=== PATIENT | female | born 1940 | race Two or more races ===

== ENCOUNTER 2025-04-18 11:53 | Inpatient (IN) | payer BC, SELFPAY ==
[2025-04-17] VITALS (11 sets, daily range): BP systolic 124–157; BP diastolic 55–136; BMI 27.1
--- NOTE | 2025-04-17 10:44 | ED.GENMED ---
History of Present Illness
General
Chief Complaint: Swelling
Source: patient
Exam Limitations: none
Time Seen by Provider: 04/17/25 10:30
History of Present Illness
History of Present Illness:
85-year-old female complaining of bilateral lower extremity swelling. Started in the last 24 to 36 hours. Chronologically she feels it was related to her taking an injection of Zepbound. She denies chest pain shortness of breath. Some nasal
congestion. No fever or chills. No abdominal pain. No history of similar episodes.
Past History
Past History
ED Past Medical History: HTN and Hypercholesterolemia
Review of Systems
Review of Systems
All Other Systems: Not applicable
Constitutional: Denies fever
Respiratory: Reports no symptoms
Cardiac: Reports no symptoms
Phy Exam
Physical Exam
Physical Exam:
GENERAL: Alert and oriented in no apparent distress
EYE: Orbits normal.
NECK: Supple, no significant adenopathy.
ENT: Pharynx without erythema
CARDIAC: Regular rate and rhythm without any obvious murmurs.
LUNGS: Clear breath sounds,normal
ABDOMEN: Soft, without focal tenderness or distention
NEUROLOGICAL: Alert and oriented , grossly non-focal
SKIN: Warm and dry, no rash or lesion, no discoloration, skin intact.
MUSCULOSKELETAL: Mild bilateral lower extremity pitting edema symmetrically
PSYCH: Normal and appropriate interaction.
Scores
Heart Failure Risk
Heart Failure Risk Score: Not Applicable
Course
Orders/Labs/Results
Orders:
Orders
04/17/25 10:43
Electrocardiogram (*1) Stat
Reason for Study: Other
Other Reason for Exam: chest pain
EKG- Treatment ONCE
IV Insert/Care/Rem.- Treatment PRN
CR Chest - 2 Views Urgent
Comment:
Reason For Exam: Bilateral leg swelling
Pulse Ox/cont/shift [RESP] Stat
Quantity: 1
US Periph Venous LOWER Ext Jose De Jesus Urgent
Comment:
Reason For Exam: Bilateral leg swelling
04/17/25 11:01
Basic Metabolic Panel Urgent
Complete Blood Count/With Diff Urgent
Magnesium Urgent
Comment: ADD ON
NT-proBNP Urgent
TSH Reflex To Free T4 Urgent
Troponin I Urgent
04/17/25 12:08
Potassium Chloride 10% Elixir [KCl Elixir] 40 meq PO NOW STA
Potassium Chloride [KCl] 40 meq 0.9% Sodium Chloride 250 ml [Nss] 250 ml IV NOW
04/17/25 12:28
Potassium Chloride [KCl] 40 meq 0.9% Sodium Chloride 250 ml [Nss] 250 ml IV NOW
04/17/25 12:43
Add On- LAB Urgent
Tests Added?: Magnesium
04/17/25 12:45
Admit/Transfer Patient As Directed
Co-Sign Provider:
Level of Care: Observation services
Assign to:: Telemetry
Physician / Group: [email or web address]
Diagnosis: acute hypokalemia, peripherla edema
Reason for Telemetry: Other
Other Reason for Telemetry: acute hypokalemia, peripherla edema
Date to Stop Telemetry: 04/19/25
Time to Stop Telemetry: 11:00
04/17/25 12:49
Code Status As Directed
Resuscitation Status: Full Code
04/17/25 13:35
CMP [Comprehensive Metabolic Panel] Urgent
04/18/25 06:00
CMP [Comprehensive Metabolic Panel] IN AM
Magnesium IN AM
04/19/25 11:00
DC Protocol for Telemetry ONCE
Abnormal Lab Results
04/17/25
11:01
RBC 3.16 L 10^6/uL
(4.20-5.40)
Hgb 9.5 L g/dL
(12.0-16.0)
Hct 28.6 L %
(37.0-47.0)
Absolute Monos (auto) 0.7 H 10^3/uL
(0.1-0.6)
Monocytes % 10.5 H %
(1.7-9.3)
Potassium 2.5 L* mmol/L
(3.5-5.1)
Carbon Dioxide 35 H mmol/L
(22-30)
04/17/25 11:01
04/17/25 11:01
Vital Signs
Initial and Last Documented VS:
Initial Vital Signs
Temp Pulse Resp BP Pulse Ox
98.5 F 61 16 150/59 96
04/17/25 09:48 04/17/25 09:48 04/17/25 09:48 04/17/25 09:48 04/17/25 09:48
Last Documented Vital Signs
Temp Pulse Resp BP Pulse Ox
98.5 F 53 16 157/70 95
04/17/25 09:48 04/17/25 12:45 04/17/25 12:45 04/17/25 12:36 04/17/25 12:45
MDM/Problems Addressed
Differential Diagnosis Includes:
Bilateral lower extremity mild pitting edema. Relatively new onset. Highly doubt DVT but will get ultrasound. Evaluate for renal failure or heart failure. All very low suspicion. Patient is on a calcium channel jared it could be related to
this although she has been on that for a while. Workup in progress. Also check thyroid.
Severe hypokalemia. Possible mild fluid overload although minimal. Patient was on a hydrochlorothiazide diuretic. Will admit for replenishment
*Radiology
Radiology exam reviewed: preliminary read by ED provider (Negative) and other (Negative ultrasound)
*Pulse Oximetry
SaO2: 96
Oxygen Mode of Delivery: Room air
Patient hypoxic: no
*EKG
Interpreted by ED Provider?: Yes
Interpretation: abnormal
Comparison EKG: no comparison EKG present
Heart Rate: 54
Rate: bradycardiac
Rhythm: sinus
[place]: normal axis
Interval: normal interval
QRS Pattern: normal QRS
Ischemia: no ischemia
*Critical Care Note
Total Time (30-74mins, 75-104mins- exclusive of procedures): Not Applicable
ED Attending Note
-
Portions of this chart may have been created with voice recognition software.� Occasional wrong word or��sound alike� substitutions may have occurred due to the inherent limitations of voice recognition software.
Discharge Plan
Departure
Patient Disposition: Admit
Date of Disposition: 04/17/25
Time of Disposition: 12:22
Presentation/result/management discussed w/ accepting MD/DO: Hospitalist
Discharge Problem:
Severe hypokalemia, Anemia, Peripheral edema
Interventions
Interventions:
*Risk Screen - Suicide Last Done: 04/17/25 09:48
*General Assessment Last Done: 04/17/25 11:08
*Neglect/Abuse Screening Last Done: 04/17/25 09:48
*ED COVID-19 Vaccine History Last Done: 04/17/25 11:08
*ED Influenza Vaccine History Last Done: 04/17/25 11:08
ED- Cardiac Assessment Last Done: 04/17/25 11:08
ED- Pulmonary Assessment Last Done: 04/17/25 11:08
ED-Skin Assessment Last Done: 04/17/25 11:08
[2025-04-17 11:22] LABS: Hematocrit 28.6 % (37.0-47.0); Hemoglobin 9.5 g/dL (12.0-16.0); Mean Corp Hgb Conc. 33.2 g/dL (33.0-37.0); Mean Corpuscular Volume 90.5 fL (81.0-99.0); Nucleated Red Blood Cells % 0 %; Platelet Count 214 10^3/uL (130-400); Red Cell Dist. Width 14.1 % (11.5-14.5)
[2025-04-17 11:37] LABS: Blood Urea Nitrogen 13 mg/dl (7-17); Calcium 8.8 mg/dl (8.4-10.2); Carbon Dioxide 35 mmol/L (22-30); Chloride 100 mmol/L (98-107); Glucose 81 mg/dl (70-99); Potassium 2.5 mmol/L (3.5-5.1); Sodium 140 mmol/L (135-145); eGFR > 60.00
[2025-04-17 11:43] LABS: Troponin I 0.014 ng/ml
--- NOTE | 2025-04-17 12:22 | HPS.HSE ---
Addendum entered and electronically signed by Nasim Chapman MD 04/17/25 14:46:
ADDENDUM
B/L TYRELL US report
- Negative for bilateral lower extremity deep venous thrombosis.
CXR
- Tiny bilateral pleural effusions.
- Small right upper lobe pulmonary nodule. Probable benign granuloma.
- Nonurgent chest CT examination recommended.
Hospitalist informed the patient and family to f/u with OP CTC as suggested by CXR report
Original Note:
Family Physician
-
Family Physician: * NONE
Chief Complaint
-
New onset of Tyrell edema
History of Present Illness
HPI
85F HX HTN, HLD seen at ER
- onset of bilateral lower extremity swellingnoted in last 24 to 36 hours.
- Chronologically she feels it was related to her taking an injection of Zepbound( Tirzepatide- GLP1 +GIPreceptor)for wt loss and BG control
ROS:
She denies chest pain shortness of breath.
Some nasal congestion. No fever or chills.
No abdominal pain.
No history of similar episodes.
Medical History
Past Medical History
Past Medical History: Reports HTN and Hypercholesterolemia
Past Surgical History: Reports None
Social History
Tobacco: Non-smoker
Alcohol: None
Family History
Family History: Not pertinent
Allergies / Home Medications
Allergies reflects when Allergies were last updated in [facility].
Home Medications with original date entered in [facility]
Allergy/Medication List:
Allergies
Allergy/AdvReac Type Severity Reaction Status Date / Time
Penicillins Allergy Mild Rash Verified 04/17/25 09:48
Sulfa (Sulfonamide Allergy Mild Rash Verified 04/17/25 09:48
Antibiotics)
Home Medications
Lactobac no.2-Bifidobac no.1-S. thermo 112.5 billion cell capsule (Visbiome) 1 cap PO DAILY Supplement 04/17/25
amlodipine 5 mg tablet (Norvasc) 5 mg PO DAILY Gastrointestinal Issue 04/17/25
buspirone 5 mg tablet 5 mg PO DAILY Mental Health/Anxiety 04/17/25
cholecalciferol (vitamin D3) 25 mcg (1,000 unit) tablet (Vitamin D3) 25 mcg PO DAILY Supplement 04/17/25
coQ10 (ubiquinol) 100 mg capsule 100 mg PO DAILY Supplement 04/17/25
hydrochlorothiazide 12.5 mg tablet 12.5 mg PO DAILY Blood Clot Prevention/Tx 04/17/25
losartan 100 mg tablet 100 mg PO DAILY Blood Pressure 04/17/25
rosuvastatin 5 mg tablet (Crestor) 5 mg PO DAILY 04/17/25
Review of Systems
-
Constitutional: Reports No Symptoms
EENT: Reports No Symptoms
Respiratory: Reports No Symptoms
Cardiac: Reports No Symptoms
Abdomen/GI: Reports No Symptoms
: Reports No Symptoms
Musculoskeletal: Reports See HPI and Edema (Tyrell )
Skin: Reports No Symptoms
Neurological: Reports No Symptoms
Endocrine: Reports No Symptoms
Hematologic/Lymphatic: Reports No Symptoms
Psych: Reports No Symptoms
Physical Exam
Vital Signs
Vital Signs
Temp Pulse Resp BP Pulse Ox
98.5 F 51 18 139/66 95
04/17/25 09:48 04/17/25 11:07 04/17/25 11:07 04/17/25 11:07 04/17/25 11:07
Physical Exam
General: Well Developed, Well Nourished and No Apparent Distress
HEENT: NormoCephalic, Moist mucous membranes and Atraumatic
Respiratory: Clear
Cardiac: S1/S2 and Regular Rhythm; No Murmur or Rub
GI: Soft, Non Tender, Non Distended and Normal Bowel Sounds; No Organomegaly
Rectal: Deferred by Provider
Musculoskeletal: Edema, Left Lower Extremity (pitting, not tender , no erythema ) and Edema, Right Lower Extremity (pitting, not tender , no erythema )
Skin: No Rash
Neuro: Nonfocal/grossly intact
Laboratory Results
-
04/17/25 11:01
04/17/25 11:01
Laboratory Results
Troponin I 0.014 ng/ml 04/17/25 11:01
Data Reviewed
-
Diagnostic Radiology: Other (pending report )
Ultrasound: Other (pending report )
Lab Data: Labs Reviewed by me
Impression/Plan
-
Vital Signs
Temp Pulse Resp BP Pulse Ox
98.5 F 51 18 139/66 95
04/17/25 09:48 04/17/25 11:07 04/17/25 11:07 04/17/25 11:07 04/17/25 11:07
Laboratory Tests
04/17/25
11:01
WBC 6.3
Hgb 9.5 L
MCV 90.5
Plt Count 214
Sodium 140
Potassium 2.5 L*
Carbon Dioxide 35 H
Creatinine 0.6
eGFR > 60.00
Troponin I 0.014
Qak-B-Rkidpozcntg Pept 1770
TSH (Reflex) 0.95
Pending CXR final report
Pending TYRELL US report
EKG:
P-R Int : 158 ms QRS Dur : 82 ms QT Int : 464 ms P-R-T Axes : 30 -6 16 degrees
QTcB Int : 440 ms
SINUS BRADYCARDIA
OTHERWISE NORMAL ECG
NO PREVIOUS ECGS AVAILABLE
NO PRIOR hospitalist admission:
ASSESSMENT & PLAN
Severe hypokalemia suspect due to HCTZ
- report PO intake
- No EKG changes
- Mg stat
- S/P IV KCL 40 + PO KCL 40
- Repeat K at 6 pm and FU BMP at am
New onset of B/L Tyrell edema
- check LFTs and Albumin ( ordered CMP )
- Hold Amlodipine for now
- FU Tyrell US report and CXR report
- ECHO in AM for LVEF and RV function
- cont. compression stocking
Bn HTN - acceptable BP range
Normal renal function
- c/w Losartan
- Observe BP off Amlodipine and HCTZ
Dyslipidemia on Rosuvastatin
On inj Zepbound( Tirzepatide - GLP1 +GIP receptor)for wt loss and BG control
- she does not want to be cont.
DVT Px: LMWH
Full code
OBS TLM
[2025-04-17] MEDS: KCL ELIXIR 40 MEQ PO (12:33)
[2025-04-17] MEDS: KCL 270 MEQ IV (12:50)
[2025-04-17 13:23] LABS: Magnesium 2.0 mg/dl (1.6-2.3)
[2025-04-17 13:45] LABS: Urine Character Clear (Clear)
[2025-04-17 14:08] LABS: ALT (SGPT) 34 U/L (0-35); AST (SGOT) 29 U/L (14-36); Albumin 3.7 g/dl (3.5-5.0); Alkaline Phosphatase 51 U/L (38-126); Blood Urea Nitrogen 12 mg/dl (7-17); Calcium 8.9 mg/dl (8.4-10.2); Carbon Dioxide 35 mmol/L (22-30); Chloride 100 mmol/L (98-107); Glucose 92 mg/dl (70-99); Potassium 2.9 mmol/L (3.5-5.1); Sodium 137 mmol/L (135-145); Total Protein 6.1 g/dl (6.3-8.2); eGFR > 60.00
--- NOTE | 2025-04-17 15:25 | CM ---
Patient seen at bedside in ED. Patient sons present. Patient states that she lives in a 2 story home with a first floor bedroom. Patient has no DME at this time. Patient PCP is [facility] from [place], Patient nurse practicioner is [place].
Patient plan is to return to home with family support, patient uncertain if she will have any needs. CM provided OBS/MCNAMARA and form completed and given to community board member. CM will continue to follow for discharge planning needs.
Plan; home with VN pending medical treatment plan
[2025-04-17] MEDS: TYLENOL PO (16:30)
[2025-04-17] MEDS: LOVENOX 40 MG SC (17:28)
[2025-04-17 18:57] LABS: Blood Urea Nitrogen 12 mg/dl (7-17); Calcium 8.6 mg/dl (8.4-10.2); Carbon Dioxide 32 mmol/L (22-30); Chloride 103 mmol/L (98-107); Estimated Creatinine Clearance 56 ml/min; Glucose 89 mg/dl (70-99); Potassium 3.0 mmol/L (3.5-5.1); Sodium 136 mmol/L (135-145); eGFR > 60.00
[2025-04-17] MEDS: TYLENOL 650 MG PO (20:13)
[2025-04-18] MEDS: TYLENOL PO ×4 (01:41→17:21)
[2025-04-18 03:17] VITALS: BP 109/59
[2025-04-18 06:00] VITALS: BMI 26.9
[2025-04-18 07:15] VITALS: BMI 27.0
[2025-04-18 07:16] VITALS: BP 128/49
[2025-04-18] MEDS: CRESTOR 5 MG PO (07:46)
[2025-04-18] MEDS: COZAAR 100 MG PO (07:46)
[2025-04-18] MEDS: BUSPAR 5 MG PO (07:46)
[2025-04-18] MEDS: PROTONIX 20 MG PO (08:23)
[2025-04-18 08:26] LABS: ALT (SGPT) 40 U/L (0-35); AST (SGOT) 37 U/L (14-36); Albumin 3.5 g/dl (3.5-5.0); Alkaline Phosphatase 62 U/L (38-126); Blood Urea Nitrogen 15 mg/dl (7-17); Calcium 8.7 mg/dl (8.4-10.2); Carbon Dioxide 30 mmol/L (22-30); Chloride 101 mmol/L (98-107); Estimated Creatinine Clearance 56 ml/min; Glucose 71 mg/dl (70-99); Iron 52 ug/dl (37-170); LDH 246 U/L (120-246); Magnesium 2.0 mg/dl (1.6-2.3); Potassium 3.1 mmol/L (3.5-5.1); Sodium 137 mmol/L (135-145); Total Protein 5.9 g/dl (6.3-8.2); eGFR > 60.00
[2025-04-18 08:35] LABS: Total Iron Binding Capacity 318 ug/dl (265-497)
[2025-04-18 08:54] LABS: Reticulocyte Count 2.8 % (0.4-2.8)
[2025-04-18] MEDS: KCL 40 MEQ PO ×2 (09:09→12:19)
[2025-04-18 09:22] LABS: COVID-19 Antigen Negative (Negative)
--- NOTE | 2025-04-18 10:23 | W.PN.HOSP.TC ---
Addendum entered and electronically signed by Juan Molina MD 04/18/25 11:53:
#Small right upper lobe pulmonary nodule.
Probable benign granuloma. Low dose CT as outpatient with PCP
Original Note:
Today's Communication/Plan
-
see PN
Assessment / Plan
Assessment / Plan
85yo F with PMHx of anxiety, HTN, HLD came with 2 days of swelling of the ankles. She noticed 10lbs weight gain 2 weeks ago after she completed Prednisone taper prescribed by her PCP [employer] for TMJ pain. Found with b/l pitting ankle swelling that
subsided with compression stocking and severe hypokalemia
A/P:
#B/L LE edema
most likely subacute CHF since weight gain recently, elevated proBNP and JVD on exam. Patient not hypoxic
Improved on compression stockings, but would benefit from LAsix when hypokalmia resolved
Echo
Card consult
Kidney function WNL, no proteinuria on UA
#Hypokalemia
most likely 2/2 HCTZ
replete and follow
#HLD
#Essential HTN
hold Norvasc
cont statin
#anemia
most liekly DONELL - replete iron
anemia w/u
Outpatient EGD/Colonoscopy recommended
#Transaminitis
minimal
no abd pain
Hepatitis profile
DVT ppx lovenox
Full code
I have spent at least 51min reviewing chart, test results, communication with consultants and providing direct patient care
Anticipated Discharge: 24 - 48 hours
Subjective/Interval History
-
Date of Service: April 18, 2025
Objective Data
-
Labs:
Laboratory Results
04/18/25
06:57
Sodium 137
Potassium 3.1 L
Chloride 101
Carbon Dioxide 30
BUN 15
Creatinine 0.6
Glucose 71
Calcium 8.7
Total Bilirubin 1.3
AST 37 H
ALT 40 H
Alkaline Phosphatase 62
Vital Signs:
Vital Signs
Temp Pulse Resp BP Pulse Ox
98.4 F 62 17 128/49 97
04/18/25 07:16 04/18/25 07:16 04/18/25 07:16 04/18/25 07:16 04/18/25 07:16
I&O
04/17/25 04/18/25 04/19/25
06:59 06:59 06:59
Intake Total 180 / 180
Balance 180 / 180
Review of Systems
-
History Source: Patient
All other systems: Reviewed and negative
Physical Exam
-
General: No Apparent Distress
HEENT: Normocephalic
Cardiac: Regular Rhythm
GI: Soft, Nontender and Nondistended
Genito-urinary: No Costovertebral Tender
Musculoskeletal: No Clubbing, No Cyanosis, Edema, Right Lower Extrem and Edema, Left Lower Extrem
Skin: Warm
Neuro: Awake, Alert, Oriented and AO x 3
Psych: Calm
[2025-04-18 10:56] LABS: Folate 9.2 ng/ml (2.76-20); Vitamin B12 879 pg/ml (239-931)
--- NOTE | 2025-04-18 11:01 | CON.CAR ---
Addendum entered and electronically signed by Luis Funk MD 04/18/25 12:03:
I saw and evaluated the patient, and I provided the substantive portion of the medical decision making.
I reviewed and agree with the note by SERGIO Herndon and it accurately reflects our care.
I personally performed the medical decision making of the this encounter and my assessment and plan is below:
Volume overload developed after a 5-day course of prednisone. I am not sure we should call this heart failure yet. Appropriate to diurese to remove excess fluid. Will need to follow her over time. If fluid reaccumulates remote from steroids we might
have to consider HFpEF. Profound hypokalemia is being corrected. Presumably related to steroid exposure and thiazide diuretic. If hypokalemia recurs remote from prednisone may need to consider other etiologies and check Cain renin ratio. Echo
reveals moderate aortic regurgitation and mildly elevated PASP. Will need to follow these over time. EKG normal.
Original Note:
Consultation
Consultation Request
Date/Time Consultation Requested: 04/18/25 1012
Date/Time Consultation Performed: 04/18/25 1100
Requesting Provider: Dr. Molina
Performing Provider: Addie HILL for Dr. Funk
Reason for Consultation: CHF
Medical History
-
Chief Complaint: swelling
History of Present Illness:
85 y/o female with anxiety, hypertension, GERD, TMJ, and dyslipidemia who is here for evaluation of LE swelling that she noted on Friday. About 2 weeks ago she was on prednisone course for jaw pain related to her TMJ- helped with pain, but she
gained 11 lbs (normal weight for her is 123 lbs). We are consulted for concern for CHF. BNP is 1770. CXR showed small b/l pleural effusions. She denies any SOB. She was seen to have severe hypokalemia, which is being replaced. She is in no distress
at the time of my assessment.
Past Medical History
Past Medical History: GERD, HTN, Hypercholesterolemia and Psychiatric (anxiety)
Social History
Tobacco: Non-Smoker
Alcohol: Occasional
Personal:
Family History
Family History: CAD (dad [place] age 61)
Allergies / Home Medications
Allergy/AdvReac Type Severity Reaction Status Date / Time
Penicillins Allergy Mild Rash Verified 04/17/25 09:48
Sulfa (Sulfonamide Allergy Mild Rash Verified 04/17/25 09:48
Antibiotics)
�Medication �Instructions �Recorded �Confirmed �Type
Lactobac no.2-Bifidobac no.1-S. 1 cap PO DAILY Supplement 04/17/25 04/17/25 History
thermo 112.5 billion cell capsule
(Visbiome)
amlodipine 5 mg tablet (Norvasc) 5 mg PO DAILY Gastrointestinal 04/17/25 04/17/25 History
Issue
buspirone 5 mg tablet 5 mg PO DAILY Mental Health/Anxiety 04/17/25 04/17/25 History
cholecalciferol (vitamin D3) 25 25 mcg PO DAILY Supplement 04/17/25 04/17/25 History
mcg (1,000 unit) tablet (Vitamin
D3)
coQ10 (ubiquinol) 100 mg capsule 100 mg PO DAILY Supplement 04/17/25 04/17/25 History
hydrochlorothiazide 12.5 mg tablet 12.5 mg PO DAILY Blood Clot 04/17/25 04/17/25 History
Prevention/Tx
losartan 100 mg tablet 100 mg PO DAILY Blood Pressure 04/17/25 04/17/25 History
rosuvastatin 5 mg tablet (Crestor) 5 mg PO DAILY cholesterol 04/17/25 04/17/25 History
Review of Systems
-
History Source: Patient
All other systems: Negative unless noted
Constitutional: Weight Gain
Musculoskeletal: Edema
Physical Exam
Vital Signs
Temp Pulse Resp BP Pulse Ox
98.4 F 62 17 128/49 97
04/18/25 07:16 04/18/25 07:16 04/18/25 07:16 04/18/25 07:16 04/18/25 07:16
Lab Results
04/17/25 11:01
04/18/25 06:57
Troponin I 0.014 ng/ml 04/17/25 11:01
Vjn-A-Mbibhrzbojv Pept 1770 pg/ml 04/17/25 11:01
Physical Exam
General: Well Developed, Well Nourished and No Apparent Distress
HEENT: Normocephalic and Anicteric
Respiratory: Clear and Non Labored Respirations
Cardiac: Regular Rhythm
Musculoskeletal: Edema (mild BLE edema L > R)
Skin: Warm and Dry
Neuro: AO x 3
Psych: Calm
Impression / Plan
-
Volume retention likely related to recent steroid use:
-will order IV diuresis (with potassium hold parameters) after more potassium given and rechecked today. IV lasix requires intensive monitoring.
-dry weight is 123 lbs. She is currently 133 lbs. She has mild LE edema and lungs are clear. She is laying flat and denies SOB.
-We do not suspect heart failure at this time; volume retention likely related to above.
-echo is pending
Hypokalemia:
-severe on arrival
-replacement is underway
-monitor closely
-on HCTZ as OP
Anemia:
-w/u and management per hospitalists
HTN:
-stable
-monitor with diuresis/medicine adjustments
HLD:
-statin
Data Reviewed
-
EKG: Tracing Personally Visualized and interpreted (SB at 54 BPM)
Radiology: Report Reviewed by me (CXR: Tiny bilateral pleural effusions. Small right upper lobe pulmonary nodule. Probable benign granuloma. Nonurgent chest CT examination recommended.)
Ultrasound: Report Reviewed by me (Negative for bilateral lower extremity deep venous thrombosis.)
Medical Tests (Nuc Med, Echo etc): Other (echo ordered and pending)
Labs: Labs Reviewed by me
[2025-04-18 11:48] VITALS: BP 147/70
[2025-04-18 11:55] LABS: Ferritin 44.2 ng/ml (11.1-264.0)
[2025-04-18] MEDS: TYLENOL 650 MG PO ×3 (11:55→23:29)
--- NOTE | 2025-04-18 12:46 | CM ---
tt from [facility] patient LOC change-IMM explained & signed. In chart
cardiology consulted
discussed VN, declined at this time
PLAN: Home, when stable, CM to continue to follow for discharge planning/needs
[2025-04-18 15:10] VITALS: BP 138/70
[2025-04-18] MEDS: FERRLECIT 110 MG IV (15:12)
[2025-04-18 16:20] LABS: Potassium 4.0 mmol/L (3.5-5.1)
[2025-04-18] MEDS: LASIX 20 MG IV (16:29)
[2025-04-18] MEDS: KCL 20 MEQ PO (17:11)
[2025-04-18] MEDS: LOVENOX 40 MG SC (17:16)
[2025-04-18 18:37] LABS: Hepatitis B Surface Antigen Negative (Negative)
[2025-04-18 18:55] LABS: Hepatitis C Antibody Negative (Negative)
[2025-04-18 19:15] VITALS: BP 137/79
[2025-04-18 23:30] VITALS: BP 141/68
[2025-04-19 03:39] VITALS: BP 104/69
[2025-04-19] MEDS: TYLENOL PO ×4 (04:34→12:13)
[2025-04-19 06:11] VITALS: BMI 26.6
[2025-04-19 07:20] VITALS: BP 146/69
[2025-04-19] MEDS: PROTONIX 20 MG PO (07:27)
[2025-04-19] MEDS: CRESTOR 5 MG PO (07:27)
[2025-04-19] MEDS: COZAAR 100 MG PO (07:27)
[2025-04-19] MEDS: KCL 20 MEQ PO ×2 (07:27→14:08)
[2025-04-19] MEDS: BUSPAR 5 MG PO (07:27)
[2025-04-19] MEDS: LASIX IV ×2 (07:28→07:43)
[2025-04-19 07:38] LABS: Blood Urea Nitrogen 13 mg/dl (7-17); Calcium 8.5 mg/dl (8.4-10.2); Carbon Dioxide 32 mmol/L (22-30); Chloride 105 mmol/L (98-107); Estimated Creatinine Clearance 56 ml/min; Glucose 86 mg/dl (70-99); Potassium 3.0 mmol/L (3.5-5.1); Sodium 139 mmol/L (135-145); eGFR > 60.00
[2025-04-19 08:43] LABS: ALT (SGPT) 50 U/L (0-35); AST (SGOT) 42 U/L (14-36); Albumin 3.5 g/dl (3.5-5.0); Alkaline Phosphatase 55 U/L (38-126); Total Protein 5.8 g/dl (6.3-8.2)
[2025-04-19] MEDS: KCL 40 MEQ PO (08:56)
--- NOTE | 2025-04-19 09:06 | W.PN.CD ---
Today's Communication / Plan
-
1. Use Losartan 100 mg daily with new amlodipine 5 mg daily for her HTN
2. Do not resume HCTZ
3. Replete K+
4. I added ARR (aldosterone-renin ratio) to lab, will be pending at discharge
5. BMP in 1 and 3 weeks, results can go to my office
6. I stopped IV Lasix
7. Agree with workup of anemia, etiology uncertain, may need hematology eval as outpatient
From our perspective OK for home once K+ better
Impression / Plan
-
Volume retention likely related to recent steroid use:
-edema is resolved
-perhaps a dry weight is not 123 pounds. Today 59.6 kg (131 pounds
-dry weight is 123 lbs. She is currently 133 lbs. She has mild LE edema and lungs are clear. She is laying flat and denies SOB.
Moderate aortic regurgitation with AoV sclerosis
- Not likely related to anemia, hypokalemia, or edema
- Monitor over time
Hypokalemia:
-severe on arrival
-presumably from HCTZ and steroids and now some from Lasix
- I ordered an arya-renin ratio
Anemia:
-w/u and management per hospitalists
HTN:
-For now will use losartan and amlodipine w/o diuretic
HLD:
-statin
Subjective; feels well
Physical Exam
Vital Signs/Labs
Vital Signs
Temp Pulse Resp BP Pulse Ox
97.9 F 66 17 146/69 97
04/19/25 07:20 04/19/25 07:27 04/19/25 07:20 04/19/25 07:27 04/19/25 07:20
04/18/25 04/19/25 04/20/25
06:59 06:59 06:59
Actual Weight 60.328 kg 59.619 kg
04/17/25 11:01
04/19/25 06:53
Magnesium 2.0 mg/dl (1.6-2.3) 04/18/25 06:57
04/17/25
11:01
Wpb-N-Kizzkibxkiv Pept 1770
LAB Results
04/17/25
11:01
Troponin I 0.014
Physical Exam
Constitutional: No acute distress
EENT: Anicteric
Cardiovascular: Rhythm & rate is regular and Pedal edema is absent
Respiratory: Respiratory effort normal and Lungs clear to auscul.
GI: Soft and Distention absent
Neuro/Psych: Alert
Data Reviewed
-
Date of Service: April 19, 2025
[2025-04-19 10:56] VITALS: BP 121/77
--- NOTE | 2025-04-19 11:09 | W.PN.HOSP.TC ---
Today's Communication/Plan
-
dc
Assessment / Plan
Assessment / Plan
85yo F with PMHx of anxiety, HTN, HLD came with 2 days of swelling of the ankles. She noticed 10lbs weight gain 2 weeks ago after she completed Prednisone taper prescribed by her PCP [employer] [employer] for TMJ pain. Found with b/l pitting ankle swelling that
subsided with compression stocking and severe hypokalemia
A/P:
#B/L LE edema
most likely subacute CHF since weight gain recently, elevated proBNP and JVD on exam. Patient not hypoxic
Improved on compression stockings, but would benefit from LAsix when hypokalemia resolved
Echo: preserved EF, mild-moderate TR woith Estimated PASP 45 mmHg.
Card consult
Kidney function WNL, no proteinuria on UA
#Hypokalemia
most likely 2/2 HCTZ and poor oral intake
replete and follow
Renin/Aldosteone ratio - follow up with card as outpatient
#HLD
#Essential HTN
hold Norvasc
cont statin
#anemia
DONELL - replete iron IV while in hospital
Outpatient EGD/Colonoscopy recommended
Hematology if not improving
#Transaminitis
minimal
no abd pain
Hepatitis negative, immunized to HepB
DVT ppx lovenox
Full code
I have spent at least 36min reviewing chart, test results, communication with consultants and providing direct patient care
Anticipated Discharge: Today
Subjective/Interval History
-
Date of Service: April 19, 2025
Objective Data
-
Labs:
Laboratory Results
04/19/25
06:53
Sodium 139
Potassium 3.0 L
Chloride 105
Carbon Dioxide 32 H
BUN 13
Creatinine 0.6
Glucose 86
Calcium 8.5
Total Bilirubin 0.7
AST 42 H
ALT 50 H
Alkaline Phosphatase 55
Vital Signs:
Vital Signs
Temp Pulse Resp BP Pulse Ox
97.8 F 69 17 121/77 97
04/19/25 10:56 04/19/25 10:56 04/19/25 10:56 04/19/25 10:56 04/19/25 10:56
I&O
04/18/25 04/19/25 04/20/25
06:59 06:59 06:59
Intake Total 850 / 850
Output Total 1900 / 1900
Balance -1050 / -1050
Review of Systems
-
History Source: Patient
All other systems: Reviewed and negative
Physical Exam
-
General: No Apparent Distress
HEENT: Normocephalic
Cardiac: Regular Rhythm
GI: Soft, Nontender and Nondistended
Neuro: Awake, Alert, Oriented and AO x 3
Psych: Calm
--- NOTE | 2025-04-19 11:19 | W.DCSUMMARY ---
Discharge Summary
Discharge Data
Date of Admission: 04/18/25
Date of Discharge: 04/19/25
-
Pending Results: No
Hospital Course
85yo F with PMHx of anxiety, HTN, HLD came with 2 days of swelling of the ankles. She noticed 10lbs weight gain 2 weeks ago after she completed Prednisone taper prescribed by her PCP [facility] for TMJ pain. Found with b/l pitting ankle swelling that
subsided with compression stocking and severe hypokalemia. As per family - patient has poor apetite - recommended to be started on supplements and multivitamin. Public Interviewer will be following as outpatient for renin-aldosterone ratio. Patient
adsvised to establish PCP in the area as she is moving here and follow up for BMP and anemia with them. Family bedside verbalized understanding. Transient fever with mild transaminitis - systemic viral? Hepatitis neg.. LFT in 1-[address]
chest as outpatient for right upper lobe pulmonary nodule 5mm size in 2-4 weeks recommended
I have spent at least 36min reviewing chart, test results, communication with consultants and providing direct patient care
Patient was managed for:
#B/L LE edema
#Hypokalemia
#HLD
#Essential HTN
#anemia
#Transaminitis
#right upper lobe pulmonary nodule
Discharge Plan
-
Patient Disposition: Home (Routine Discharge)
Discharge Diagnosis/Procedures: Hypokalemia
Diet: Regular
Additional Diets: 'Ensure' or similar supplements BID
Blood Work: BMP LFT in 1-2 weeks with family doctor
Others Tests: right upper lobe pulmonary nodule 5mm - Low dose CT chest in 2-4 weeks
Activity Restrictions/Additional Instructions:
Establish PCP and obtain referral to GI for Colonoscopy
If anemia persists - body bumper referral from family doctor
Referrals:
NONE,* [Family Provider, Internal Medicine]
Luis Funk MD [Active, Cardiology] - in two to three weeks
Prescriptions:
New
Multivitamin Women 50 Plus 8 mg iron-400 mcg-50 mcg tablet
1 tab PO DAILY Qty: 30 0RF
Continued
rosuvastatin [Crestor] 5 mg Tablet
5 mg PO DAILY
buspirone 5 mg Tablet
5 mg PO DAILY
amlodipine [Norvasc] 5 mg Tablet
5 mg PO DAILY
losartan 100 mg Tablet
100 mg PO DAILY
cholecalciferol (vitamin D3) [Vitamin D3] 25 mcg (1,000 unit) Tablet
25 mcg PO DAILY
Visbiome 112.5 billion cell Capsule
1 cap PO DAILY
coQ10 (ubiquinol) 100 mg Capsule
100 mg PO DAILY
Discontinued
hydrochlorothiazide 12.5 mg Tablet
12.5 mg PO DAILY
Discharge Orders:
Discharge Patient (As Directed); Ordered 04/19/25
Ordered By: Juan Molina
Discharge Date and Time
Print Language: SPANISH
[2025-04-19] MEDS: KCL 160 MEQ IV (12:02)
[2025-04-19] MEDS: FERRLECIT 110 MG IV (14:09)
[2025-04-19 14:20] LABS: Potassium 3.8 mmol/L (3.5-5.1)
[2025-04-19 15:10] VITALS: BP 152/60
== END 2025-04-19 16:35 | disposition home or self-care (01) | DRG 641 ==
LOC: 3 WEST ACU 11:53
PROVIDERS: Nurse Practitioner; ADMITTING PHYSICIAN Internal Medicine; ATTENDING PHYSICIAN Internal Medicine; CONSULT PHYSICIAN Internal Medicine Cardiovascular Disease; EMERGENCY PHYSICIAN Emergency Medicine
DX: E87.6 Hypokalemia (principal); E78.00 Pure hypercholesterolemia, unspecified; I11.0 Hypertensive heart disease with heart failure; I50.9 Heart failure, unspecified; D64.9 Anemia, unspecified; F41.9 Anxiety disorder, unspecified; R91.1 Solitary pulmonary nodule; Z88.0 Allergy status to penicillin; Z88.2 Allergy status to sulfonamides; K21.9 Gastro-esophageal reflux disease without esophagitis; Z79.899 Other long term (current) drug therapy; Z82.49 Family history of ischemic heart disease and other diseases of the circulatory system; Z11.52 Encounter for screening for COVID-19
CPT/HCPCS: 71046; 80048; 80053; 81003; 82088; 82248; 82607; 82728; 82746; 83010; 83540; 83550; 83615; 83735; 83880; 84132; 84244; 84443; 84484; 85025; 85045; 85652; 86704; 86706; 86803; 87340; 87502; 87811; 93005; 93306; 93970; 99285; J2916

== ENCOUNTER → 2025-04-29 13:22 | Outpatient (REF) | payer OTHER, SELFPAY | LOC: HWRAD 13:22 | PROVIDERS: ATTENDING PHYSICIAN Nurse Practitioner Acute Care | DX: R91.1 Solitary pulmonary nodule (principal) | CPT/HCPCS: 71250 ==